=== PATIENT | male | born 1955 | race Caucasian/White ===

== ENCOUNTER 2017-03-14 08:36 | Emergency (ER) | payer OTHER ==
[2017-03-14] MEDS ORDERED: IBUPROFEN 600 MG TAB PO STA (08:54)
[2017-03-14 08:56] VITALS: BP 139/87; PULSE 78; TEMP 36.6; O2SAT 95; Ht 172.7 cm
--- NOTE | 2017-03-14 08:56 | EMERGENCY ROOM VISIT NOTE ---
History Report prepared by Kenrickibbuster: Tara Baptiste Under the Supervision of: Dr. Sumeet Serrano M.D. First contact with patient: 08:45 Chief Complaint: SHOULDER PAIN Stated Complaint: PULLED SHOULDER BY PICKING UP SOMETHING AT WORK History of Present Illness The patient is a 62 year old male who presents to the Emergency Room with complaints of persistent right shoulder pain that began 3 hours and 45 minutes prior to arrival. The patient states that he was lifting an 8 gallon sharps container this morning that weighed approximately 30 pounds. He states that he then developed right shoulder pain. The patient denies any other injury and denies any pain radiating down to his wrist. He denies any previous injury to his right shoulder. Source of History: patient Onset: three hours and 45 minutes prior to arrival Position: shoulder (right) Timing: other (persistent) Review of Systems See HPI for pertinent positives & negatives. A total of 10 systems reviewed and were otherwise negative. Past Medical & Surgical Medical Problems: (1) Stroke Family History No pertinent family history stated. Social History Marital Status: Housing Status: lives with significant other Occupation Status: employed Current/Historical Medications Unable to Obtain Active Prescriptions or Reported Meds Allergies Coded Allergies: Celecoxib (Unverified Allergy, Unknown, ITCHY, 03/14/17) Physical Exam Vital Signs Date Time Temp Pulse Resp B/P (MAP) Pulse Ox O2 Delivery O2 Flow Rate FiO2 03/14/17 08:56 36.6 78 16 139/87 95 Room Air Physical Exam GENERAL: Patient is in no acute distress. HEENT: No acute trauma, normocephalic atraumatic, mucous membranes moist, no nasal congestion, no scleral icterus. NECK: No stridor, no adenopathy, no meningismus, trachea is midline. LUNGS: Clear to auscultation bilaterally, no wheeze, no rhonchi, breath sounds equal. HEART: Without murmurs gallops or rubs, regular rate and rhythm. ABDOMEN: Soft, nontender, bowel sounds positive, no hernias, no peritonitis. EXTREMITIES: Normal function of his right radial ulnar and median nerve, strong right radial pulse. No pain to palpate the right shoulder proper. Rotator cuff and deltoid function are intact. Tender to palpate the right trapezius musculature. NEUROLOGIC: Oriented x 3, no acute motor or sensory deficits, no focal weakness. SKIN: No rash, no jaundice, no diaphoresis. Medical Decision & Procedures Medications Administered Medications (Trade) Dose Ordered Sig/Johnnie Route Start Time Stop Time Status Last Admin Dose Admin Ibuprofen (Motrin Tab) 600 mg NOW STAT PO 03/14/17 08:54 03/14/17 08:55 DC 03/14/17 09:01 600 MG ED Course 0846: The patient was evaluated in room A9B. A complete history and physical exam was performed. 0852: I discussed the exam findings with him and I discussed the treatment plan. He verbalized complete understanding and agreement. He is ready to go home shortly. 0854: Ordered Ibuprofen 600 mg PO. Medical Decision The patient is a 62 year old male who presents to the ED with complaints of right shoulder pain. Differential diagnoses considered include Neurovascular compromise, clavicle or shoulder injury, trapezius injury, shoulder dislocation or fracture.. The patient presents with right shoulder pain. This is a work injury that occurred while lifting. The patient's pain is really in the right trapezius. The shoulder proper is nontender and there is no evidence for right upper extremity neurovascular compromise. I did not think films were needed. The patient was reassured. He was given oral Motrin here for discomfort, this was recommended as an outpatient, ice is recommended, he will rest the shoulder/trapezius area. If worsening, he can return. Impression Primary Impression: Strain of right trapezius muscle Scribe Attestation The scribe's documentation has been prepared under my direction and personally reviewed by me in its entirety. I confirm that the note above accurately reflects all work, treatment, procedures, and medical decision making performed by me. Departure Information Dispostion Home / Self-Care Prescriptions Unable to Obtain Active Prescriptions or Reported Meds Referrals Ho Combs M.D. (PCP) Forms HOME CARE DOCUMENTATION FORM, IMPORTANT VISIT INFORMATION Patient Instructions My [facility] Additional Instructions motrin 600mg 3x per day for 3 days ice for 30 minutes at a time for next 2 days, several times per day switch over to heat after the 2 days of ice limit the use of your right arm today--limit lifting talk to your workmans comp doctor about followup and return to work info return if worsening
== END 2017-03-14 09:06 | disposition home or self-care (01) ==
LOC: C.EDB 08:38 → C.EDA 09:06
DX: S46.901A Unspecified injury of unspecified muscle, fascia and tendon at shoulder and upper arm level, right arm, initial encounter (principal); X50.9XXA Other and unspecified overexertion or strenuous movements or postures, initial encounter; I63.9 Cerebral infarction, unspecified